=== PATIENT | male | born 1990 | race American Indian/Alaskan Native ===

== ENCOUNTER 2020-10-01 15:43 | Inpatient (IN) | payer OTHER ==
[2020-10-01] MEDS ORDERED: HYDROmorphone 1 MG/1 ML INJ IV ONE (16:15)
[2020-10-01] MEDS ORDERED: ONDANSETRON 4 MG/2 ML INJ IV ONE (16:16)
--- NOTE | 2020-10-01 16:25 | Emergency Department Report ---
HPI - General Chief Complaint: Extremity Injury, Lower Time Seen by Provider: 10/01/20 15:58 - HPI HPI: 30-year-old male with no know past medical history brought in by EMS with severe right distal leg and ankle pain after he slipped and fell off of a high chair. 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 He denies hitting his head or losing consciousness. He has significant pain in the right lower extremity such that he is unable to move it. It was placed in a temporary splint by EMS. He denies any other physical complaints to any other part of his body including denying headache, vision change, neck pain, back pain, chest pain, shortness of breath, olivia pain, nausea/vomiting, or any other complaints. He also denies any significant numbness, paresthesias, focal weakness. He was given 100 mcg of intranasal fentanyl in route. ED Past Medical Hx - Past Medical History Previous Medical History?: No - Surgical History Past Surgical History?: No - Social History Smoking Status: Never Smoker ED Review of Systems ROS: Stated complaint: RT LEG FX Other details as noted in HPI Constitutional: denies: chills, fever Eyes: denies: eye pain, vision change ENT: denies: throat pain, congestion Respiratory: denies: cough, shortness of breath Cardiovascular: denies: chest pain, palpitations Gastrointestinal: denies: abdominal pain, nausea, vomiting Genitourinary: denies: dysuria, frequency Musculoskeletal: denies: back pain, myalgia Skin: denies: rash Neurological: denies: headache, weakness, numbness, paresthesias Physical Exam - Physical Exam Physical Exam: GENERAL: Well developed and well nourished. No acute distress HEENT: Normocephalic. No obvious signs of trauma. Moist mucous membranes. EYES: Extraocular movements are intact. Pupils are equal round and reactive to light bilaterally NECK: Supple. Trachea is midline. LUNGS: Nonlabored breathing. Equal chest rise bilaterally. Clear to auscultation bilaterally. HEART/CARDIOVASCULAR: Regular rate and rhythm. No murmurs or rubs. VASCULAR: 2+ peripheral pulses. including 2+ PT/DP pulses on the right. Cap refill < 2 seconds ABDOMEN: Abdomen is soft and nondistended. There is no significant tenderness, guarding or rebound. SKIN: Skin is warm and dry NEURO: Patient is awake, alert, and oriented. accounts payable bookkeeper II-XII grossly intact. No focal deficits. Normal motor and sensory exam throughout, although motor assessment of the RLE is limited due to the pain and immobilization of the RLE. Normal speech. MUSCULOSKELETAL the right lower extremity is held externally rotated. There is no significant bony tenderness of the right hip, femur, knee. There is tenderness over the distal right tib-fib as well as lateral malleolus tenderness. There is no tenderness of the medial malleolus or base of the fifth metatarsal. Sensation is intact throughout all dermatomes of the right lower extremity. Able to wiggle toes of the right lower extremity but motor assessment of the right ankle is limited due to pain. Normal range of motion and strength as well as no tenderness of the left lower extremity, left upper extremity, and right upper extremity. BACK/SPINE: No midline tenderness or step-offs of the C/T/L spine. No costovertebral angle tenderness. ED Medical Decision Making - Lab Data Result diagrams: 10/01/20 20:03 10/01/20 20:03 - Radiology Data RIGHT TIBIA-FIBULA 2 VIEW(S) INDICATION / CLINICAL INFORMATION: fall, tenderness R leg COMPARISON: None available. FINDINGS: BONES / JOINT(S): Acute transverse fractures through the mid diaphyses of the tibia and fibula with associated comminution, greater at the fibula. Minimal posterior angulation. Minimal displacement of the tibial fracture fragments. Mild is placement of some of the larger, comminuted, fibular fracture fragments No significant arthritis. SOFT TISSUES: Moderate edema at the mid lower leg. ADDITIONAL FINDINGS: None. Signer Name: Alf Spencer MD Signed: 10/01/2020 4:24 PM Workstation Name: [id number] - Medical Decision Making 30-year-old male brought in by EMS with severe right distal tib-fib and ankle pain after fall from a 3 foot high chair. There is no obvious signs of trauma to the head. There is no mid spinal tenderness or step-offs of the CTL spine. No tenderness or limitation to range of motion of the bilateral upper extremities and left lower extremity. Examination of the right lower extremity, which is held in extreme external rotation reveals right distal tip/fib swelling and tenderness as well as tenderness over the lateral malleolus. Motor assessment is severely limited due to pain. Sensation is intact throughout all dermatomes of the right lower extremity. There is 2+ DP/PT pulses of the right lower extremity as well as normal cap refill. We will therefore give 1 mg of IV Dilaudid and perform plain film x-rays of the right tib-fib, ankle, and foot. Plain film x-rays reveal a midshaft fracture of both the right tibia and fibula which is comminuted. There are no fractures at the ankle. I went and spoke to the patient regarding the results of the studies and the diagnosis. He is still in significant pain but his compartments are soft at this time. Nonetheless we will consult orthopedic surgery for further recommendations regarding disposition Repeat examination after long leg posterior splint application reveals normal sensation and normal cap refill. The patient is able to wiggle his toes without difficulty. Still awaiting callback from orthopedic surgeon carpentry professional At 7:45 PM I spoke over the phone with Dr. Lucio of orthopedic surgery. We discussed all details of the case and he reviewed the relevant imaging. He recommends admission for further management. Preop labs ordered. Critical care attestation.: If time is entered above; I have spent that time in minutes in the direct care of this critically ill patient, excluding procedure time. ED Disposition Clinical Impression: Closed fracture of right fibula and tibia Disposition: OP ADMIT IP TO THIS HOSP Is pt being admited?: Yes Condition: Stable
--- NOTE | 2020-10-01 17:29 | XRay Report ---
RIGHT TIBIA-FIBULA 2 VIEW(S) INDICATION / CLINICAL INFORMATION: fall, tenderness R leg COMPARISON: None available. FINDINGS: BONES / JOINT(S): Acute transverse fractures through the mid diaphyses of the tibia and fibula with a ssociated comminution, greater at the fibula. Minimal posterior angulation. Minimal displacement of t he tibial fracture fragments. Mild is placement of some of the larger, comminuted, fibular fracture f ragments No significant arthritis. SOFT TISSUES: Moderate edema at the mid lower leg. ADDITIONAL FINDINGS: None. Signer Name: Alf Spencer MD Signed: 10/01/2020 5:24 PM Workstation Name: [id number]
[2020-10-01] MEDS ORDERED: ACETAMINOPHEN 325 MG TAB PO PRN (19:51)
[2020-10-01] MEDS ORDERED: oxyCODONE /ACETAMINOPHEN 5-325MG TAB PO PRN (19:51)
[2020-10-01] MEDS ORDERED: ONDANSETRON 4 MG/2 ML INJ IV PRN (19:51)
[2020-10-01] MEDS ORDERED: ALBUTEROL 2.5 MG/3 ML NEBU IH PRN (19:51)
[2020-10-01] MEDS ORDERED: MORPHINE 2 MG/1 ML INJ IV PRN (19:51)
--- NOTE | 2020-10-01 19:56 | History and Physical Report ---
History of Present Illness Chief complaint: I fell off a chair History of present illness: 30 YO Male with NO PMH presents to ED for evaluation. Patient reports "I slipped and fell off of a chair". Pt states that he was installing ceiling tiles while standing on a chair and subsequently lost his balance and fell appr oximately 3 feet and landed on the floor. Pt reports that he immediately felt pain to his right leg and was unable to move his leg and was unable to bear weight on his right leg. EMS was notified and upon arrival the patient was found to be in distress and subsequently transported to [facility] for further care and evaluation of the aforementioned symptoms. The patient was seen and evaluated in the emergency department. All lab and imaging studies reviewed. Patient underwent x-ray of the right leg and was found to have a right tib-fib fracture. Orthopedic surgery service consulted. Patient admitted to surgical floor and is pending surgical intervention. Patient denies loss of sensation, numbness, tingling to the right lower extremity, fever, chills, chest pain, palpitation, productive cough, skin rash, recent ill contact, or known exposure to COVID-19. No prior admission for review. No medication listed at time admission for reconciliation. Past History Past Medical History: No medical history, other (Reviewed) Past Surgical History: No surgical history, Other (Reviewed) Social history: no significant social history, single Family history: hypertension Medications and Allergies Allergies Allergy/AdvReac Type Severity Reaction Status Date / Time No Known Allergies Allergy Unverified 10/01/20 15:55 Active Meds: Active Medications Acetaminophen (Acetaminophen 325 Mg Tab) 650 mg PO Q4H PRN PRN Reason: Pain MILD(1-3)/Fever >100.5/ELY Albuterol (Albuterol 2.5 Mg/3 Ml Nebu) 2.5 mg IH Q4HRT PRN PRN Reason: Shortness Of Breath Morphine Sulfate (Morphine 2 Mg/1 Ml Inj) 2 mg IV Q4H PRN PRN Reason: Pain, Moderate (4-6) Ondansetron HCl (Ondansetron 4 Mg/2 Ml Inj) 4 mg IV Q8H PRN PRN Reason: Nausea And Vomiting Oxycodone/Acetaminophen (Oxycodone /Acetaminophen 5-325mg Tab) 1 tab PO Q6H PRN PRN Reason: Pain, Moderate (4-6) Sodium Chloride (Sodium Chloride 0.9% 10 Ml Flush Syringe) 10 ml IV BID ALL Sodium Chloride (Sodium Chloride 0.9% 10 Ml Flush Syringe) 10 ml IV PRN PRN PRN Reason: LINE FLUSH Review of Systems Constitutional: no weight loss, no weight gain, no fever, no chills Ears, nose, mouth and throat: no ear pain, no tinnitis, no nasal congestion, no nasal discharge, no sinus pressure Cardiovascular: no chest pain, no orthopnea, no lightheadedness Respiratory: no cough, no excessive sputum, no hemoptysis, no dyspnea on exertion Gastrointestinal: no abdominal pain, no nausea, no diarrhea, no constipation, no change in bowel habits, no hematemesis Genitourinary Male: no hematuria, no flank pain, no discharge, no urinary frequency, no urinary hesitancy Rectal: no pain, no incontinence, no bleeding Musculoskeletal: other (Right lower extremity pain), no neck stiffness, no neck pain, no shooting arm pain, no arm numbness/tingling Integumentary: no rash, no pruritis, no redness, no sores, no wounds, no jaundice, no boils Neurological: no head injury, no weakness, no numbness, no seizures, no tremors Psychiatric: no anxiety, no change in sleep habits, no insomnia, no change in appetite, no change in libido Endocrine: no cold intolerance, no polyphagia, no polyuria, no excessive sweating Hematologic/Lymphatic: no easy bruising, no easy bleeding Allergic/Immunologic: no urticaria, no allergic rhinitis, no wheezing Exam - Constitutional General appearance: Present: mild distress - EENT Eyes: Present: PERRL ENT: hearing intact, clear oral mucosa - Neck Neck: Present: supple, normal ROM - Respiratory Respiratory effort: normal Respiratory: bilateral: CTA - Cardiovascular Heart Sounds: Present: S1 & S2. Absent: rub, click - Extremities Extremities: pulses symmetrical, No edema Extremity abnormal: other (Right lower extremity splint in place. Bilateral lower extremity pulses 2+ equal bilaterally) Peripheral Pulses: within normal limits - Abdominal General gastrointestinal: Present: soft, non-tender, non-distended, normal bowel sounds Male genitourinary: Present: normal - Integumentary Integumentary: Present: clear, warm, dry - Musculoskeletal Musculoskeletal: gait normal, strength equal bilaterally - Psychiatric Psychiatric: appropriate mood/affect, intact judgment & insight - Neurologic Neurologic: CNII-XII intact, moves all extremities Assessment and Plan - Patient Problems (1) Tibia/fibula fracture Current Visit: Yes Status: Acute Qualifiers: Laterality: right Plan to address problem: Right lower extremity splint in place, orthopedic surgery service consulted, n.p.o., pain control, IV fluid resuscitation therapy, patient is pending surgical intervention. (2) Obesity (BMI 30-39.9) Current Visit: Yes Status: Acute Plan to address problem: Balanced diet, increase physical activity at discharge, outpatient pulmonary follow-up for sleep study. (3) DVT prophylaxis Current Visit: Yes Status: Acute Plan to address problem: SCD to bilateral extremities while in bed
[2020-10-01] MEDS ORDERED: MORPHINE 2 MG/1 ML INJ IV ONE (20:08)
[2020-10-01 20:22] LABS: Basophils % (Auto) 0.2 % (0.0-1.8); Eosinophils % (Auto) 0.1 % (0.0-4.3); Hematocrit 43.4 % (35.5-45.6); Hemoglobin 13.9 gm/dl (11.8-15.2); Lymphocytes % (Auto) 7.4 % (13.4-35.0); Mean Corpuscular HGB Conc 32 % (32-34); Mean Corpuscular Volume 82 fl (84-94); Monocytes % (Auto) 7.1 % (0.0-7.3); Platelet Count 294 K/mm3 (140-440); Red Blood Count 5.28 M/mm3 (3.65-5.03); Red Cell Distribution Width 13.7 % (13.2-15.2)
[2020-10-01 20:31] LABS: INR 0.99 (0.87-1.13)
[2020-10-01 20:32] LABS: Partial Thromboplastin Time 26.4 Sec. (24.2-36.6)
[2020-10-01 20:40] LABS: BUN/Creatinine Ratio 16; Blood Urea Nitrogen 13 mg/dL (9-20); Calcium 9.2 mg/dL (8.4-10.2); Hemolysis Index 20
[2020-10-02] MEDS ORDERED: KETOROLAC 30 MG/1 ML INJ IV ONE (02:48)
--- NOTE | 2020-10-02 08:20 | Progress Note ---
Assessment and Plan Assessment and plan: Tibia/fibula fracture. Await Ortho consultation. Pain control. Obesity. Balanced diet, increase physical activity at discharge, outpatient pulmonary follow-up for sleep study. DVT prophylaxis History Interval history: No new issues Hospitalist Physical - Constitutional Vitals: Temp Pulse Resp BP Pulse Ox 98.5 F 91 H 20 137/81 96 10/02/20 05:03 10/02/20 05:03 10/02/20 05:03 10/02/20 05:03 10/02/20 08:06 General appearance: Present: mild distress - EENT Eyes: Present: PERRL, EOM intact ENT: hearing intact, clear oral mucosa, dentition normal - Neck Neck: Present: supple, normal ROM - Respiratory Respiratory effort: normal Respiratory: bilateral: CTA - Cardiovascular Rhythm: regular Heart Sounds: Present: S1 & S2. Absent: gallop, rub - Extremities Extremities: no ischemia, No edema, Full ROM - Abdominal General gastrointestinal: soft, non-tender, non-distended, normal bowel sounds - Integumentary Integumentary: Present: clear, warm, dry - Neurologic Neurologic: CNII-XII intact, moves all extremities Results - Labs CBC & Chem 7: 10/01/20 20:03 10/01/20 20:03 Labs: Laboratory Last Values WBC 13.8 K/mm3 (4.5-11.0) H 10/01/20 20:03 RBC 5.28 M/mm3 (3.65-5.03) H 10/01/20 20:03 Hgb 13.9 gm/dl (11.8-15.2) 10/01/20 20:03 Hct 43.4 % (35.5-45.6) 10/01/20 20:03 MCV 82 fl (84-94) L 10/01/20 20:03 MCH 26 pg (28-32) L 10/01/20 20:03 MCHC 32 % (32-34) 10/01/20 20:03 RDW 13.7 % (13.2-15.2) 10/01/20 20:03 Plt Count 294 K/mm3 (140-440) 10/01/20 20:03 Lymph % (Auto) 7.4 % (13.4-35.0) L 10/01/20 20:03 [place] % (Auto) 7.1 % (0.0-7.3) 10/01/20 20:03 Eos % (Auto) 0.1 % (0.0-4.3) 10/01/20 20:03 Baso % (Auto) 0.2 % (0.0-1.8) 10/01/20 20:03 Lymph # (Auto) 1.0 K/mm3 (1.2-5.4) L 10/01/20 20:03 [place] # (Auto) 1.0 K/mm3 (0.0-0.8) H 10/01/20 20:03 Eos # (Auto) 0.0 K/mm3 (0.0-0.4) 10/01/20 20:03 Baso # (Auto) 0.0 K/mm3 (0.0-0.1) 10/01/20 20:03 Seg Neutrophils % 85.2 % (40.0-70.0) H 10/01/20 20:03 Seg Neutrophils # 11.8 K/mm3 (1.8-7.7) H 10/01/20 20:03 PT 13.7 Sec. (12.2-14.9) 10/01/20 20:03 INR 0.99 (0.87-1.13) 10/01/20 20:03 APTT 26.4 Sec. (24.2-36.6) 10/01/20 20:03 Sodium 138 mmol/L (137-145) 10/01/20 20:03 Potassium 4.0 mmol/L (3.6-5.0) 10/01/20 20:03 Chloride 102.2 mmol/L (98-107) 10/01/20 20:03 Carbon Dioxide 23 mmol/L (22-30) 10/01/20 20:03 Anion Gap 17 mmol/L 10/01/20 20:03 BUN 13 mg/dL (9-20) 10/01/20 20:03 Creatinine 0.8 mg/dL (0.8-1.3) 10/01/20 20:03 Estimated GFR > 60 ml/min 10/01/20 20:03 BUN/Creatinine Ratio 16 % 10/01/20 20:03 Glucose 100 mg/dL (75-100) 10/01/20 20:03 Calcium 9.2 mg/dL (8.4-10.2) 10/01/20 20:03 [place]/IV: Voiding Method Urinal Active Medications - Current Medications Current Medications: Generic Name Dose Route Start Last Admin Trade Name Freq PRN Reason Stop Dose Admin Acetaminophen 650 mg 10/01/20 19:51 Acetaminophen 325 Mg Tab PO Q4H PRN Pain MILD(1-3)/Fever >100.5/ELY Albuterol 2.5 mg 10/01/20 19:51 Albuterol 2.5 Mg/3 Ml Nebu IH Q4HRT PRN Shortness Of Breath Morphine Sulfate 2 mg 10/01/20 19:51 10/02/20 00:23 Morphine 2 Mg/1 Ml Inj IV 2 mg Q4H PRN Administration Pain, Moderate (4-6) Ondansetron HCl 4 mg 10/01/20 19:51 Ondansetron 4 Mg/2 Ml Inj IV Q8H PRN Nausea And Vomiting Oxycodone/Acetaminophen 1 tab 10/01/20 19:51 10/01/20 21:55 Oxycodone /Acetaminophen 5-325mg Tab PO 1 tab Q6H PRN Administration Pain, Moderate (4-6) Sodium Chloride 10 ml 10/01/20 22:00 10/02/20 02:50 Sodium Chloride 0.9% 10 Ml Flush Syringe IV 10 ml BID ALL Administration Sodium Chloride 10 ml 10/01/20 19:51 Sodium Chloride 0.9% 10 Ml Flush Syringe IV PRN PRN LINE FLUSH
--- NOTE | 2020-10-02 09:51 | Anesthesia Consultation ---
Anesthesia Consult and Med Hx Date of service: 10/02/20 - Airway Anesthetic Teeth Evaluation: Good ROM Head & Neck: Adequate Mental/Hyoid Distance: Adequate Mallampati Class: Class III Intubation Access Assessment: Possibly Difficult - Pre-Operative Health Status ASA Pre-Surgery Classification: ASA1 Proposed Anesthetic Plan: General - Pulmonary Hx Smoking: No Hx Respiratory Symptoms: No - Cardiovascular System Hx Hypertension: No - Central Nervous System CVA: No - Endocrine Hx Renal Disease: No Hx Liver Disease: No Hx Insulin Dependent Diabetes: No Hx Non-Insulin Dependent Diabetes: No Hx Thyroid Disease: No - Other Systems Hx Substance Use: No Hx Obesity: Yes - Additional Comments Anesthesia Medical History Comments: No prior GA. No FHx anesthetic c omplications.
[2020-10-02] MEDS ORDERED: LACTATED RINGERS 1,000 ML ONE (11:09)
--- NOTE | 2020-10-02 11:38 | Consultation ---
History of Present Illness - [facility] Consult date: 10/02/20 Consult reason: fracture History of present illness: 30 Y/O Male with c/o right pain and deformity, patient reports "I slipped and fell off of a chair", Pt states that he was installing ceiling tiles at [employer] while standing on a chair and subsequently lost his balance and fell approximately 3 feet and landed on the floor. Pt reports that he immediately felt pain to his right leg and was unable to move his leg and was unable to bear weight on his right leg. EMS was notified and upon arrival the patient was found to be in distress and subsequently transported to [facility] for further care and evaluation of the aforementioned symptoms. The patient was seen and evaluated in the emergency department at [facility]. Plain x-ray of the right leg revealed a displaced tib-fib fracture Past History Past Medical History: No medical history, other (Reviewed) Past Surgical History: No surgical history, Other (Reviewed) Social history: no significant social history, single Family history: hypertension Medications and Allergies Allergies Allergy/AdvReac Type Severity Reaction Status Date / Time No Known Allergies Allergy Unverified 10/01/20 15:55 Home Medications Medication Instructions Recorded Confirmed Last Taken Type No Known Home Medications [No 10/02/20 10/02/20 Unknown History Reported Home Medications] Active Meds: Active Medications Acetaminophen (Acetaminophen 325 Mg Tab) 650 mg PO Q4H PRN PRN Reason: Pain MILD(1-3)/Fever >100.5/ELY Albuterol (Albuterol 2.5 Mg/3 Ml Nebu) 2.5 mg IH Q4HRT PRN PRN Reason: Shortness Of Breath Morphine Sulfate (Morphine 2 Mg/1 Ml Inj) 2 mg IV Q4H PRN PRN Reason: Pain, Moderate (4-6) Last Admin: 10/02/20 00:23 Dose: 2 mg Documented by: Ondansetron HCl (Ondansetron 4 Mg/2 Ml Inj) 4 mg IV Q8H PRN PRN Reason: Nausea And Vomiting Oxycodone/Acetaminophen (Oxycodone /Acetaminophen 5-325mg Tab) 1 tab PO Q6H PRN PRN Reason: Pain, Moderate (4-6) Last Admin: 10/01/20 21:55 Dose: 1 tab Documented by: Sodium Chloride (Sodium Chloride 0.9% 10 Ml Flush Syringe) 10 ml IV BID ALL Last Admin: 10/02/20 09:14 Dose: 10 ml Documented by: Sodium Chloride (Sodium Chloride 0.9% 10 Ml Flush Syringe) 10 ml IV PRN PRN PRN Reason: LINE FLUSH Physical Examination - Physical exam Narrative exam: right leg - moderated swelliing, skin intact, + deformity at midshaft, compartments soft, distal n/v intact Eyes: PERRL ENT: Positive: clear oral mucosa Respiratory effort: normal Respiratory: bilateral: CTA Rhythm: regular Heart Sounds: Positive: S1 & S2 General gastrointestinal: Positive: soft, non-tender, non-distended, normal bowel sounds Integumentary: clear, warm, dry Neurologic: Positive: CNII-XII intact, moves all extremities, gait normal. Negative: focal deficits - Cervical Spine Neck pain: none Tenderness with palpation: none Full ROM: yes ROM: flexion: normal ROM: extension: normal ROM: rotation right: normal ROM: rotation left: normal ROM: lateral flexion right: normal ROM: lateral flexion left: normal - Lumbar Spine Back pain: none Tenderness with palpation: none Appearance: normal Full ROM: yes ROM: flexion: normal ROM: extension: normal ROM: rotation right: normal ROM: rotation left: normal ROM: lateral flexion right: normal ROM: lateral flexion left: normal Assessment and Plan Right tib-fib fracture closed Recommend -closed reduction insertion of intramedullary nail, followed by PT evaluation
[2020-10-02] MEDS ORDERED: propofoL 200 MG/20 ML VIAL IV ONE ×2 (13:06→13:40)
[2020-10-02] MEDS ORDERED: MIDAZOLAM 2 MG/2 ML INJ ONE (13:06)
[2020-10-02] MEDS ORDERED: HYDROmorphone 1 MG/1 ML INJ ONE ×2 (13:06→15:12)
[2020-10-02] MEDS ORDERED: LIDOCAINE MPF (2%) 20 MG/1 ML VIAL 5 ML ONE (13:06)
[2020-10-02] MEDS ORDERED: ceFAZolin/Water 2 GM/20 ML 2 GM/20 ML SYRINGE IV ONE (13:11)
[2020-10-02] MEDS ORDERED: ONDANSETRON 4 MG/2 ML INJ IV PRN (13:52)
[2020-10-02] MEDS ORDERED: HYDROmorphone 1 MG/1 ML INJ IV PRN (13:52)
--- NOTE | 2020-10-02 13:52 | Anesthesia Day of Surgery ---
Anesthesia Day of Surgery - Day of Surgery Patient Examined: Yes Patient H&P Reviewed: Yes Patient is NPO: Yes
[2020-10-02] MEDS ORDERED: ceFAZolin 1 GM VIAL ONE (13:55)
[2020-10-02] MEDS ORDERED: SODIUM CHLORIDE 0.9% IRR 1,500 ML BOTTLE IR ONE (14:06)
[2020-10-02] MEDS ORDERED: ONDANSETRON 4 MG/2 ML INJ ONE (15:17)
--- NOTE | 2020-10-02 15:20 | Procedure Note ---
Date of procedure: 10/02/20 Pre-op diagnosis: Displaced right tib-fib fracture Post-op diagnosis: same Procedure: Closed reduction insertion of intramedullary nail [right] tibia Procedure The patient was brought to the OR placed in the OR table in supine position following induction of regional anesthesia patient for [right] lower extremity was prepped and draped in the usual sterile manner a timeout procedure was done to identify the patient and the correct operative site. A midline incision was made over the patellar tendon was taken down sharply through skin and subcutaneous deep tendon was incised longitudinally withdraws down to the proximal tibial articular surface.Large awl was used to enter the medullary can followed by insertion of a bolster a guidewire under C-arm visualization the fracture site was identified and using gentle manipulation the guidewire was panchito perez into the distal tibia following this the size measurements were taken on 10 x 375 mm zachary was chosen. The medullary canal was then reamed up to a 11.5 mm diameter followed by insertion of the intramedullary zachary using the antegrade technique the guidewire was removed followed by placement of 2 proximal locking screws again under C-arm direction this was then followed by placement of a single distal locking screw going from anterior to posterior following this the wounds were copiously irrigated and the patellar tendon was repaired this was followed by closure of the skin and subcutaneous to postoperative dressing were applied the patient tolerated the procedure minimal complications she was taken to postanesthesia recovery in stable condition Anesthesia: ALINA Surgeon: JUAN HERCULES (Ryanne Chavez, 1st assist) Estimated blood loss: minimal Pathology: none Condition: stable Disposition: PACU
[2020-10-02] MEDS ORDERED: hydrALAZINE 20 MG/1 ML INJ IV PRN (16:05)
--- NOTE | 2020-10-02 16:21 | XRay Report ---
INTRAOPERATIVE RADIOGRAPHS, RIGHT TIBIA/FIBULA INDICATION / CLINICAL INFORMATION: OR IMAGES OF RT TIB/FIB REPAIR COMPARISON: Tibia/fibular radiograph one day prior FINDINGS: Intraoperative fluoroscopic images demonstrate internal fixation of the previously described mid tibi a shaft fracture. A mid fibular shaft fracture is also again seen. Fluoroscopy time: 1.4 minutes. Fluoroscopy images: 6. Signer Name: Dasha Collier MD Signed: 10/02/2020 4:17 PM Workstation Name: [id number]
[2020-10-02] MEDS: KETOROLAC 30 MG/1 ML INJ IV PRN ×2 (16:23→22:22)
--- NOTE | 2020-10-02 16:26 | Post Anesthesia Evaluation ---
- Post Anesthesia Evaluation Patient Participated: Yes Airway Patent: Yes Stable Respiratory Function: Yes Nausea/Vomiting: No Temp > 96.8F: Yes Pain Manageable: Yes Adequeate Hydration: Yes Anesthesia Complications: No
[2020-10-02] MEDS: MORPHINE 4 MG/1 ML INJ IV PRN (20:51)
[2020-10-03] MEDS: KETOROLAC 30 MG/1 ML INJ IV PRN ×2 (05:12→11:51)
--- NOTE | 2020-10-03 08:19 | Progress Note ---
Assessment and Plan Assessment and plan: Tibia/fibula fracture. Await Ortho consultation. Pain control. Obesity. Balanced diet, increase physical activity at discharge, outpatient pulmonary follow-up for sleep study. DVT prophylaxis 10/03/2020. Patient is s/p Closed reduction insertion of intramedullary nail [right] tibia yesterday. Await PT evaluation for further recommendations. Adequate pain control. History Interval history: No new issues Hospitalist Physical - Constitutional Vitals: Temp Pulse Resp BP Pulse Ox 98.0 F 109 H 20 134/45 94 10/03/20 07:24 10/03/20 07:24 10/03/20 07:24 10/03/20 07:24 10/03/20 07:24 General appearance: Present: mild distress - EENT Eyes: Present: PERRL, EOM intact ENT: hearing intact, clear oral mucosa, dentition normal - Neck Neck: Present: supple, normal ROM - Respiratory Respiratory effort: normal Respiratory: bilateral: CTA - Cardiovascular Rhythm: regular Heart Sounds: Present: S1 & S2. Absent: gallop, rub - Extremities Extremities: no ischemia, No edema, Full ROM - Abdominal General gastrointestinal: soft, non-tender, non-distended, normal bowel sounds - Integumentary Integumentary: Present: clear, warm, dry - Neurologic Neurologic: CNII-XII intact, moves all extremities Results - Labs CBC & Chem 7: 10/01/20 20:03 10/01/20 20:03 Labs: Laboratory Last Values WBC 13.8 K/mm3 (4.5-11.0) H 10/01/20 20:03 RBC 5.28 M/mm3 (3.65-5.03) H 10/01/20 20:03 Hgb 13.9 gm/dl (11.8-15.2) 10/01/20 20:03 Hct 43.4 % (35.5-45.6) 10/01/20 20:03 MCV 82 fl (84-94) L 10/01/20 20:03 MCH 26 pg (28-32) L 10/01/20 20:03 MCHC 32 % (32-34) 10/01/20 20:03 RDW 13.7 % (13.2-15.2) 10/01/20 20:03 Plt Count 294 K/mm3 (140-440) 10/01/20 20:03 Lymph % (Auto) 7.4 % (13.4-35.0) L 10/01/20 20:03 [place] % (Auto) 7.1 % (0.0-7.3) 10/01/20 20:03 Eos % (Auto) 0.1 % (0.0-4.3) 10/01/20 20:03 Baso % (Auto) 0.2 % (0.0-1.8) 10/01/20 20:03 Lymph # (Auto) 1.0 K/mm3 (1.2-5.4) L 10/01/20 20:03 [place] # (Auto) 1.0 K/mm3 (0.0-0.8) H 10/01/20 20:03 Eos # (Auto) 0.0 K/mm3 (0.0-0.4) 10/01/20 20:03 Baso # (Auto) 0.0 K/mm3 (0.0-0.1) 10/01/20 20:03 Seg Neutrophils % 85.2 % (40.0-70.0) H 10/01/20 20:03 Seg Neutrophils # 11.8 K/mm3 (1.8-7.7) H 10/01/20 20:03 PT 13.7 Sec. (12.2-14.9) 10/01/20 20:03 INR 0.99 (0.87-1.13) 10/01/20 20:03 APTT 26.4 Sec. (24.2-36.6) 10/01/20 20:03 Sodium 138 mmol/L (137-145) 10/01/20 20:03 Potassium 4.0 mmol/L (3.6-5.0) 10/01/20 20:03 Chloride 102.2 mmol/L (98-107) 10/01/20 20:03 Carbon Dioxide 23 mmol/L (22-30) 10/01/20 20:03 Anion Gap 17 mmol/L 10/01/20 20:03 BUN 13 mg/dL (9-20) 10/01/20 20:03 Creatinine 0.8 mg/dL (0.8-1.3) 10/01/20 20:03 Estimated GFR > 60 ml/min 10/01/20 20:03 BUN/Creatinine Ratio 16 % 10/01/20 20:03 Glucose 100 mg/dL (75-100) 10/01/20 20:03 Calcium 9.2 mg/dL (8.4-10.2) 10/01/20 20:03 Holm/IV: Voiding Method Urinal Active Medications - Current Medications Current Medications: Generic Name Dose Route Start Last Admin Trade Name Freq PRN Reason Stop Dose Admin Acetaminophen 650 mg 10/01/20 19:51 Acetaminophen 325 Mg Tab PO Q4H PRN Pain MILD(1-3)/Fever >100.5/ELY Albuterol 2.5 mg 10/01/20 19:51 Albuterol 2.5 Mg/3 Ml Nebu IH Q4HRT PRN Shortness Of Breath Hydralazine HCl 5 mg 10/02/20 16:05 10/02/20 16:12 Hydralazine 20 Mg/1 Ml Inj IV 5 mg Q10MIN PRN Administration Hypertension Hydromorphone HCl 0.5 mg 10/02/20 13:52 10/03/20 02:23 Hydromorphone 1 Mg/1 Ml Inj IV 0.5 mg Q10MIN PRN Administration Pain , Severe (7-10) Ketorolac Tromethamine 15 mg 10/02/20 15:15 10/03/20 05:12 Ketorolac 30 Mg/1 Ml Inj IV 10/07/20 15:14 15 mg Q6H PRN Administration Pain, Moderate (4-6) Morphine Sulfate 4 mg 10/02/20 15:15 10/02/20 20:51 Morphine 4 Mg/1 Ml Inj IV 4 mg Q4H PRN Administration Pain , Severe (7-10) Ondansetron HCl 4 mg 10/01/20 19:51 Ondansetron 4 Mg/2 Ml Inj IV Q8H PRN Nausea And Vomiting Oxycodone/Acetaminophen 1 tab 10/01/20 19:51 10/01/20 21:55 Oxycodone /Acetaminophen 5-325mg Tab PO 1 tab Q6H PRN Administration Pain, Moderate (4-6) Sodium Chloride 10 ml 10/01/20 22:00 10/02/20 21:02 Sodium Chloride 0.9% 10 Ml Flush Syringe IV 10 ml BID ALL Administration Sodium Chloride 10 ml 10/01/20 19:51 Sodium Chloride 0.9% 10 Ml Flush Syringe IV PRN PRN LINE FLUSH
--- NOTE | 2020-10-03 09:02 | XRay Report ---
Right tibia and fibula 5 views INDICATION: Postop FINDINGS: Intramedullary zachary is been placed within the right tibia. Overall alignment appears satisfa ctory. Comminuted mildly angulated fracture within the fibula persist involving the distal fibular sh aft. Postop changes. Intramedullary zachary in the tibia appears satisfactory in position. Comminuted fracture within the distal fibular shaft with mild angulation. Signer Name: Elan Machuca MD Signed: 10/03/2020 8:58 AM Workstation Name: [id number]
[2020-10-03] MEDS: MORPHINE 4 MG/1 ML INJ IV PRN (09:20)
--- NOTE | 2020-10-03 14:00 | Post Anesthesia Evaluation ---
- Post Anesthesia Evaluation Patient Participated: Yes Airway Patent: Yes Stable Respiratory Function: Yes Nausea/Vomiting: No Temp > 96.8F: Yes Pain Manageable: Yes Adequeate Hydration: Yes Anesthesia Complications: No Block Receding Appropriately: Not Applicable Patient on Ventilator: No Other Comments: Patient ambulates with physical therapists, pain under control
[2020-10-03 15:31] VITALS: BP 141/63
[2020-10-03] MEDS ORDERED: HYDROcodone/Acetaminophen 7.5-325MG-15ML ORAL LIQD PO PRN (16:56)
--- NOTE | 2020-10-03 17:52 | Discharge Summary ---
Providers - Providers Date of Admission: 10/01/20 19:51 Date of discharge: 10/03/20 Attending physician: PRASANNA OJEDA 10/01/20 19:54 Consult to Physician [CONS] Urgent Comment: Consulting Provider: JUAN HERCULES Physician Instructions: Reason For Exam: Right tib/fib fracture 10/02/20 15:16 Physical Therapy Evaluation and Treat [CONS] Routine Comment: Reason For Exam: postop evaluation Weight bearing status?: Full wt bearing Assistive devices?: Yes If so list: Walker Primary care physician: [facility] [employer] Hospitalization Reason for admission: tib fib fx Condition: Stable Hospital course: 30 Y/O Male with c/o right pain and deformity, patient reports "I slipped and fell off of a chair", Pt states that he was installing ceiling tiles at [employer] while standing on a chair and subsequently lost his balance and fell approximately 3 feet and landed on the floor. Pt reports that he immediately felt pain to his right leg and was unable to move his leg and was unable to bear weight on his right leg. EMS was notified and upon arrival the patient was found to be in distress and subsequently transported to [facility] for further care and evaluation of the aforementioned symptoms. The patient was seen and evaluated in the emergency department at [facility]. Plain x-ray of the right leg revealed a displaced tib-fib fracture. Admitted with dx of tib fib fx. Pt was seen by Ortho in consultation and underwent surgical repair. PT also saw pt postop and cleared for d/c home. Dedicated d/c tme 33 min Disposition: DC-01 TO HOME OR SELFCARE Final Discharge Diagnosis (Prints w/discharge instructions): tib fib fx Core Measure Documentation - Palliative Care Palliative Care/ Comfort Measures: Not Applicable - Core Measures Any of the following diagnoses?: none Exam - Constitutional Vitals: Temp Pulse Resp BP Pulse Ox 98.0 F 103 H 20 141/63 97 10/03/20 15:21 10/03/20 15:21 10/03/20 15:21 10/03/20 15:21 10/03/20 15:21 General appearance: Present: no acute distress, well-nourished - EENT Eyes: Present: PERRL ENT: hearing intact, clear oral mucosa - Neck Neck: Present: supple, normal ROM - Respiratory Respiratory effort: normal Respiratory: bilateral: CTA - Cardiovascular Heart Sounds: Present: S1 & S2. Absent: rub, click - Extremities Extremities: pulses symmetrical, No edema Peripheral Pulses: within normal limits - Abdominal General gastrointestinal: Present: soft, non-tender, non-distended, normal bowel sounds Male genitourinary: Present: normal - Integumentary Integumentary: Present: clear, warm, dry - Musculoskeletal Musculoskeletal: gait normal, strength equal bilaterally - Psychiatric Psychiatric: appropriate mood/affect, intact judgment & insight - Neurologic Neurologic: CNII-XII intact, moves all extremities Plan Activity: advance as tolerated Weight Bearing Status: Weight Bear as Tolerated Diet: regular Follow up with: PRIMARY CAREMD [Primary Care Provider] - 3-5 Days JUAN HERCULES MD [Staff Physician] - 7 Days Prescriptions: HYDROcodone/Acetaminop 7.5-325 [[place] 7.5-325 mg per 15 ML] 7.5 mg PO Q6H PRN 10 Days oral liquid PRN Reason: Pain, Moderate (4-6)
== END 2020-10-03 18:40 | disposition home or self-care (01) | DRG 494 ==
LOC: ED 15:43 → 3B-SURG 19:51
PROVIDERS: ADMIT Internal Medicine; ATTEND Hospitalist
PROC: 0QSG06Z Reposition Right Tibia with Intramedullary Internal Fixation Device, Open Approach (ICD-10-PCS; principal; 2020-10-02)
DX: S82.221A Displaced transverse fracture of shaft of right tibia, initial encounter for closed fracture (principal); S82.451A Displaced comminuted fracture of shaft of right fibula, initial encounter for closed fracture; W07.XXXA Fall from chair, initial encounter; Y93.89 Activity, other specified; Y92.89 Other specified places as the place of occurrence of the external cause; E66.9 Obesity, unspecified; Z68.39 Body mass index [BMI] 39.0-39.9, adult; Z82.49 Family history of ischemic heart disease and other diseases of the circulatory system
CPT/HCPCS: 36415; 80048; 85025; 85610; 85730; 96374; 96375; G0378; C1713; J0360; J0690; J1170; J1885; J2250; J2270; J2405; J2704; J7120; L8699

== ENCOUNTER 2020-11-14 10:36 | Outpatient (CLI) | payer MEDICARE ==
--- NOTE | 2020-11-14 13:16 | XRay Report ---
RIGHT TIBIA FIBULA 2 views HISTORY: Tibia fracture COMPARISON: 10/03/2020 TECHNIQUE: 2 views of the left tibia and fibula were obtained. FINDINGS: Bones: Intramedullary zachary and nails is again seen spanning the transverse tibial fracture. There is i nterval callus formation of the tibial fracture. Alignment is maintained. Comminuted and mildly angu lated fracture of the fibula has a similar appearance with mild medial offset of the distal fracture fragments. Joint spaces: Maintained. Soft tissues: No significant abnormality. Additional findings: None. IMPRESSION: 1. Intramedullary zachary of the tibia is in stable position. There is bridging callus formation of the t ibia and fibula with alignment as above. Signer Name: Rory Duenas MD Signed: 11/14/2020 1:11 PM Workstation Name: [id number]
== END 2020-11-14 10:37 | disposition home or self-care (01) ==
LOC: XRAY 10:36
PROVIDERS: ATTEND Orthopaedic Surgery
DX: S82.209D Unspecified fracture of shaft of unspecified tibia, subsequent encounter for closed fracture with routine healing (principal); X58.XXXD Exposure to other specified factors, subsequent encounter

== ENCOUNTER 2021-06-07 16:45 | Emergency (ER) | payer MEDICARE ==
[2021-06-07 18:48] VITALS: BP 136/87
[2021-06-07] MEDS ORDERED: KETOROLAC 10 MG TAB PO ONE (20:31)
[2021-06-07] MEDS ORDERED: predniSONE 20 MG TAB PO ONE (20:32)
--- NOTE | 2021-06-07 20:34 | Emergency Department Report ---
ED Extremity Problem HPI - General Chief complaint: Extremity Problem,Nontraumatic Stated complaint: LT KNEE PAIN Time Seen by Provider: 06/07/21 20:25 Source: patient Mode of arrival: Ambulatory Limitations: No Limitations - History of Present Illness Initial comments: 31-year-old black male with no past medical history presents to the emergency department for evaluation of 2-week history of left knee pain. He denies injury and states that pain just came out of nowhere. He states that he has pain mostly when he bears weight, and it feels like his knee is going to give out. He denies pain to his calf area, chest pain, shortness of breath, and hemoptysis. MD Complaint: extremity pain -: Gradual, week(s) (2) Location: left, knee History of Same: No -: Yes myalgia, No arthralgia, No fever, No associated dyspnea, No associated chest pain Radiation: none Severity scale (0 -10): 8 Quality: aching Consistency: constant Worsens with: walking Associated Symptoms: denies: chest pain, shortness of breath, fever, myalgias, arthralgias, rash - Related Data Previous Rx's Medication Instructions Recorded Last Taken Type HYDROcodone/Acetaminop 7.5-325 7.5 mg PO Q6H PRN 10 Days oral 10/03/20 Unknown Rx [[place] 7.5-325 mg per 15 ML] liquid Naproxen [Naprosyn] 500 mg PO BID #14 tab 06/07/21 Unknown Rx Allergies Allergy/AdvReac Type Severity Reaction Status Date / Time No Known Allergies Allergy Unverified 10/01/20 15:55 ED Review of Systems ROS: Stated complaint: LT KNEE PAIN Other details as noted in HPI Comment: All other systems reviewed and negative Constitutional: denies: chills, diaphoresis, fever, malaise, weakness Eyes: denies: eye pain ENT: denies: ear pain Respiratory: denies: cough, shortness of breath Cardiovascular: denies: chest pain, palpitations, dyspnea on exertion Endocrine: no symptoms reported Gastrointestinal: denies: abdominal pain, nausea, vomiting Genitourinary: denies: urgency, dysuria, frequency Musculoskeletal: denies: back pain, joint swelling Skin: denies: rash, lesions Neurological: denies: headache, weakness, numbness, paresthesias Psychiatric: denies: anxiety Hematological/Lymphatic: denies: as per HPI ED Past Medical Hx - Past Medical History Hx Hypertension: No Hx Congestive Heart Failure: No Hx Diabetes: No Hx Liver Disease: No Hx Renal Disease: No Hx Sickle Cell Disease: No Hx Asthma: No Hx COPD: No - Social History Smoking Status: Never Smoker - Medications Home Medications: Home Medications Medication Instructions Recorded Confirmed Last Taken Type HYDROcodone/Acetaminop 7.5-325 7.5 mg PO Q6H PRN 10 Days oral 10/03/20 Unknown Rx [[place] 7.5-325 mg per 15 ML] liquid Naproxen [Naprosyn] 500 mg PO BID #14 tab 06/07/21 Unknown Rx ED Physical Exam - General Limitations: No Limitations General appearance: alert, in no apparent distress - Head Head exam: Present: atraumatic, normocephalic - Eye Eye exam: Absent: normal appearance, conjunctival injection - Neck Neck exam: Present: normal inspection, full ROM. Absent: tenderness - Respiratory Respiratory exam: Present: normal lung sounds bilaterally. Absent: respiratory distress - Cardiovascular Cardiovascular Exam: Present: regular rate, normal heart sounds - GI/Abdominal GI/Abdominal exam: Present: soft, normal bowel sounds. Absent: distended, tenderness, guarding, rebound, rigid - Extremities Exam Extremities exam: Present: normal inspection - Expanded Lower Extremity Exam Left Knee exam: Present: normal inspection, full ROM, tenderness. Absent: swelling, abrasion, ecchymosis, deformity, dislocation, erythema Lower Leg exam: Present: normal inspection. Absent: Leif's sign Neuro vascular tendon exam: Present: no vascular compromise. Absent: pulse deficit, extremity cold to touch Gait: Positive: observed and normal - Back Exam Back exam: Present: normal inspection, full ROM - Neurological Exam Neurological exam: Present: alert, oriented X3 - Psychiatric Psychiatric exam: Present: normal affect, normal mood - Skin Skin exam: Present: warm, dry, intact, normal color ED Course Vital Signs 06/07/21 18:43 Temperature 98.4 F Pulse Rate 92 H Respiratory 18 Rate Blood Pressure 136/87 [Right] O2 Sat by Pulse 100 Oximetry ED Medical Decision Making - Medical Decision Making 31-year-old black male with no past medical history presents to the emergency department for evaluation of 2-week history of left knee pain. He denies injury and states that pain just came out of nowhere. He states that he has pain mostly when he bears weight, and it feels like his knee is going to give out. He denies pain to his calf area, chest pain, shortness of breath, and hemoptysis. Pain consistent with musculoskeletal pain. Patient will be tried on 1 week course of NSAIDs, and if he has no improvement he is encouraged to follow-up with orthopedics for further testing. Plan discussed with patient he verbalized understanding of and agreement with. He was advised to follow-up in the emergency department if worsening symptoms or no improvement. Critical care attestation.: If time is entered above; I have spent that time in minutes in the direct care of this critically ill patient, excluding procedure time. ED Disposition Clinical Impression: Left knee pain Qualifiers: Chronicity: acute Qualified Code(s): M25.562 - Pain in left knee Disposition: 01 HOME / SELF CARE / HOMELESS Is pt being admited?: No Does the pt Need Aspirin: No Condition: Stable Instructions: How to Use Cold Therapy, [id number], Pain Without a Known Cause, Acute Knee Pain, Adult, [id number] Additional Instructions: Take medications as prescribed. Follow-up with orthopedics if no improvement or worsening symptoms. Prescriptions: Naproxen [Naprosyn] 500 mg PO BID #14 tab Referrals: PRIMARY CARE, [Primary Care Provider] - 3-5 Days Time of Disposition: 20:34
== END 2021-06-07 21:05 | disposition home or self-care (01) ==
LOC: ED 16:45
DX: M25.562 Pain in left knee (principal)
CPT/HCPCS: 99282